=== PATIENT | female | born 1970 | race Native Hawaiian/Other Pacific Islander ===

== ENCOUNTER 2017-03-14 14:21 | Outpatient (CLI) | payer OTHER | END 2017-03-14 19:23 | disposition home or self-care (01) | LOC: MRI 14:21 | DX: M25.561 Pain in right knee (principal) ==

== ENCOUNTER 2017-12-14 20:04 | Outpatient (CLI) | payer OTHER | END 2017-12-14 20:16 | disposition short-term general hospital (02) | LOC: AMB 20:04 | DX: M54.2 Cervicalgia (principal); Y08.89XA Assault by other specified means, initial encounter; Y92.89 Other specified places as the place of occurrence of the external cause | CPT/HCPCS: A0425; A0426 ==

== ENCOUNTER 2017-12-14 20:28 | Emergency (ER) | payer OTHER ==
[~2017-12-14] VITALS: Ht 170.2 cm; Wt 82.6 kg
[2017-12-14 20:18] VITALS: BP 150/95; TEMP 97.9
== END 2017-12-14 21:45 | disposition home or self-care (01) ==
LOC: ED 20:28
DX: M54.2 Cervicalgia (principal); M54.5 Low back pain; Y09 Assault by unspecified means
CPT/HCPCS: 99283; J1885

== ENCOUNTER 2018-08-15 08:55 | Outpatient (CLI) | payer OTHER | END 2018-08-15 21:17 | disposition home or self-care (01) | LOC: US 08:55 | DX: R10.11 Right upper quadrant pain (principal) ==

== ENCOUNTER 2019-04-10 10:17 | Inpatient (IN) | payer OTHER ==
[~2019-04-10] VITALS: Ht 167.6 cm; Wt 72.6 kg
[2019-04-10 10:17] VITALS: BP 113/75; TEMP 98.7
[2019-04-10 11:37] LABS: PLATELET COUNT 399 K/uL (152-353)
[2019-04-10 11:45] LABS: POTASSIUM 3.5 mmol/L (3.6-5.2)
[2019-04-10 17:16] VITALS: BP 124/85; TEMP 97.8
[2019-04-10 19:30] VITALS: BP 124/85; TEMP 97.8; Ht 167.6 cm; Wt 72.6 kg
[2019-04-10 20:00] VITALS: BP 117/73; TEMP 97.6
[2019-04-11] VITALS: BP 131/88; TEMP 98.3
[2019-04-11 04:00] VITALS: BP 149/86; TEMP 98.4
[2019-04-11 08:22] VITALS: BP 150/96; TEMP 97.6
[2019-04-11 08:46] LABS: POTASSIUM 3.6 mmol/L (3.6-5.2)
[2019-04-11 09:54] LABS: PLATELET COUNT 331 K/uL (152-353)
--- NOTE | 2019-04-11 10:33 | NUR ---
IV WAS FLUSHED AND IV ANITBOTICS STARTED ON PT, BUT PT C/O OF IV SITE STINGING, AND A SMALL RAISED AREA WAS NOTED ABOUT AN INCH AWAY FROM SITE. IV STOPPED AND WILL ATTEMPT TO GAIN ANOTHER IV SITE TO PT. PT IS ON CONTACT ISOLATION D/T STAPH IN BILATERAL HANDS. PT WENT OUT EARLIER TO THE SMOKING AREA. THIS NURSE ASK NURSE PROCESS SAFETY MANAGEMENT ENGINEER FARIBA LOVELL ABOUT IF PT WAS ALLOWED TO GO OUT, IF SHE WAS ON CONTACT, AND WAS TOLD THAT PT NEEDED TO STAY IN HER ROOM. THIS NURSE THEN INFORMED PT OF THIS INFORMATION, AND PT STATED,"THAT SHE WAS GOING TO THE SMOKING AREA, BUT SHE WOULDN'T THUMP ANYTHING ON ANYBODY". PT REFUSING TO NOT COME OUT OF HER ROOM, D/T CONTACT PRECAUTIONS. NURSE PROCESS SAFETY MANAGEMENT ENGINEER, FARIBA LOVELL IS IN MEETING UNTIL 1500 TODAY BUT THIS NURSE WILL ATTEMPT TO CONTACT HER, ON HOW TO ADDRESS THIS ISSUE. NAD NOTED. WILL CONT TO MONITOR.
--- NOTE | 2019-04-11 11:10 | NUR ---
ASSISTANT EXECUTIVE HOUSEKEEPER, FARIBA LOVELL WAS CONTACTED REGARDING PT NOT STAYING IN HER ROOM D/T BEING ON CONTACT PRECAUTIONS. NURSE TRACK MANAGER INSTRUCTED THIS NURSE TO CONTACT PT'S ATTENDINNG PHYSICIAN, DR JACKSON AND INFORMED HER, AND HER ADVISE ON HOW TO HANDLE SITUATION.
--- NOTE | 2019-04-11 12:18 | NUR ---
PT CONTINUES TO WALK OUTSIDE TO SMOKE,EVEN THOUGH SHE HAS BEEN ADVISED AGAINST IT D/T PT BEING ON CONTACT PRECAUTIONS, REGARDING WOUNDS ON TOP OF BILATERAL HANDS. DR JACKSON WAS CONTACTED AND INFORMED OF THIS INFORMATION. NEW ORDER FOR NICOTINE PATCH, 21 MG, TRANSDERMAL, Q DAY WAS RECEIVED. SHE ALSO INSTRUCTED THIS NURSE TO INFORM PT THAT SHE COULD NOT BE WALKING OUTSIDE OF ROOM D/T BEING ON CONTACT PRECAUTIONS, AND THAT SHE DID NOT NEED TO BE SMOKING D/T IT COMPROMISING HER IMMUNE SYSTEM. WOUND CULTURE SPECIMEN IS ALSO BEING OBTAINED ON PT'S LEFT HAND.
--- NOTE | 2019-04-11 15:44 | NUR ---
PT HAS WALKED OUT OF ROOM AND WENT OUTSIDE. PT WAS REMINDED THAT SHE WAS ON CONTACT PRECAUTIONS AND WAS NOT SUPPOSE TO LEAVE ROOM, AND WAS ASKED IF SHE WOULD LIKE A NICOTIN PATCH. PT STATED, "THAT IF SHE COULD NOT WALK OUTSIDE THAT SHE WANTED TO LEAVE, AND THAT SHE DID NOT WANT THE NICOTIN PATCH". PT CONTINUE TO WALK OUTSIDE. DR JACKSON WAS CALLED AND INFORMED ABOUT PT CONTINING TO WALK OUTSIDE. DR JACKSON STATED, "THAT SHE WOULD FINISH UP AT HER OFFICE, AND THEN COME AND TALK TO PATIENT.
[2019-04-11] MEDS ORDERED: ZEBUTAL 50-325-1 CAP PO (15:59)
[2019-04-11] MEDS ORDERED: ALPR0.5T24 PO (16:00)
[2019-04-11] MEDS ORDERED: HYDR10TA47A PO (16:01)
[2019-04-11] MEDS ORDERED: MOBIC7.5 M1 PO (16:23)
[2019-04-11] MEDS ORDERED: AMIT25TA22 PO (16:24)
[2019-04-11] MEDS ORDERED: GABA400C2 PO (16:25)
[2019-04-11] MEDS ORDERED: LISI20TA11 PO (16:26)
[2019-04-11] MEDS ORDERED: ATEN50TA36 PO (16:27)
[2019-04-11] MEDS ORDERED: DULOXETINE HCL60 MG PO (16:28)
[2019-04-11] MEDS ORDERED: TIZANIDINE HYDRO4 MG PO (16:29)
[2019-04-11] MEDS ORDERED: ROBAXIN-750750 MG PO (16:30)
[2019-04-11] MEDS ORDERED: [UNRECOGNIZED DRUG - CODE] PO (16:33)
--- NOTE | 2019-04-11 18:17 | NUR ---
DR JACKSON CAME TO HOSPITAL TO MAKE ROUNDS AND SEE PT D/T PATIENT CONTINUING TO LEAVE ROOM AND GO OUTSIDE TO SMOKE. PT AGREED TO STAY IN ROOM. DR JACKSON CONTINUED PT'S HOME MEDS.
--- NOTE | 2019-04-11 19:42 | NUR ---
PT IS SLANDERIZING THIS NURSE TO OTHER STAFF MEMBERS. THIS NURSE WENT TO TURN OFF PATIENT'S IV PUMP, AND ASK PATIENT IF THERE WAS A PROBLEM. PT SITTING UP IN BED AND TOLD THIS NURSE, "TO GET OUT OF HER ROOM, AND THAT SHE DID NOT HAVE ANYTHING TO SAY TO THIS NURSE". PUMP WAS TURNED OFF AND PT WAS UNHOOKED. THIS NURSE THEN LEFT THE ROOM, PT HAD REQUESTED. NURSE KILN BURNER HELPER FARIBA LOVELL WAS CALLED TO INFORM HER OF THIS INFORMATION, BUT DID NOT ANSWER.
[2019-04-11 20:00] VITALS: BP 153/92; TEMP 98
[2019-04-11 23:50] VITALS: BP 140/85; TEMP 98
[2019-04-12 04:00] VITALS: BP 150/95; TEMP 97.8
--- NOTE | 2019-04-12 08:00 | NUR ---
PT SITTING UP N BED. DENIES ACUTE DISTRESS.
[2019-04-12 10:38] VITALS: BP 172/98; TEMP 97.8
--- NOTE | 2019-04-12 10:47 | NUR ---
CALL TO DR JACKSON, REPORTED THAT PT HAD GONE OUT AFTER BEING ASKED NOT TO B/C OF HER WOUNDS & DX. 'SHE JUST PUSHED HER IV POLE & WENT OUT TO SMOKE' PER UNIT SECRETATY. AISLINN KINNEY RN CALLED & REPORTED THAT PT WAS OUTSIDE SMOKING TELLING EVERYONE THAT SHE 'WAS GETTING TERRIBLE CARE HERE'. DR JACKSON STATES' SHES GOING TO HAVE TO WAIT UNTIL I COME TO SEE HER & REVIEW HER LABS'.
--- NOTE | 2019-04-12 13:00 | NUR ---
PT ANXIOUS & TEARFUL' I JUST WANT TO GO HOME & MY BACK HURTS'. PT MEDICATED WITH HYDORCONE & XANAX PER DR'S ORDERS.
--- NOTE | 2019-04-12 14:03 | NUR ---
DR JACKSON IN TO SEE PT. WILL SEND PT HOME. WOUND CARE TO [place] TOP OF HANDS,2CM IN SIZE, BLOODY SMAMT & TRYING TO SCAB OVER. L HAND SITE SL RED. CLEANED WITH NS COVERED WI TELFA & CR WRAP.
[2019-04-12 14:33] VITALS: BP 126/93; TEMP 98
--- NOTE | 2019-04-12 15:20 | NUR ---
D/C INSTRUCTIONS GIVEN. PT VERBALIZED UNDERSTANDING. IV SITES L UPPER ARM 22G & R FA 20 G D/C'D CANNULA INTACT, SITES SECURED.
--- NOTE | 2019-04-12 15:33 | NUR ---
PT D/C STABLE AMBULATORY TO FRONT OF HOSPITAL TO [facility] OUTFRONT AT PT'S REQUEST. PT STATES'I JUST WANT TO GET OUT OF HERE MY SON WILL BE HERE AT 4PM'.
[2019-04-12 15:37] LABS: PLATELET COUNT 343 K/uL (152-353)
== END 2019-04-12 15:33 | disposition home or self-care (01) | DRG 603 ==
LOC: ED 10:17 → MED/SURG 14:18
PROVIDERS: Family Medicine; ADMIT Family Medicine
DX: L03.114 Cellulitis of left upper limb (principal); L03.113 Cellulitis of right upper limb; I10 Essential (primary) hypertension; J44.9 Chronic obstructive pulmonary disease, unspecified
CPT/HCPCS: 80053; 80202; 81000; 85027; 87040; 87070; 87205; 99283; J1650; J3370; J3490

== ENCOUNTER 2019-05-10 15:20 | Observation (INO) | payer OTHER ==
[~2019-05-10] VITALS: Ht 167.6 cm; Wt 78.7 kg
[~2019-05-10 15:20] MED LIST: ALPR0.5T24 PO; AMIT25TA22 PO; ATEN50TA36 PO; DULOXETINE HCL60 MG PO; GABA400C2 PO; HYDR10TA47A PO; LISI20TA11 PO; MOBIC7.5 M1 PO; ROBAXIN-750750 MG PO; TIZANIDINE HYDRO4 MG PO; ZEBUTAL 50-325-1 CAP PO; [UNRECOGNIZED DRUG - CODE] PO
[2019-05-10 15:47] VITALS: BP 149/81; TEMP 101.3
[2019-05-10 16:43] LABS: PLATELET COUNT 323 K/uL (152-353)
[2019-05-10 16:48] VITALS: BP 156/86
[2019-05-10 16:51] LABS: POTASSIUM 2.9 mmol/L (3.6-5.2)
[2019-05-10 17:32] VITALS: BP 149/79
[2019-05-10 19:30] VITALS: BP 142/74
[2019-05-10 20:15] VITALS: BP 136/76
[2019-05-11] VITALS: BP 134/80; TEMP 98.8
[2019-05-11 04:00] VITALS: BP 140/73; TEMP 97.3
[2019-05-11 05:06] LABS: PLATELET COUNT 286 K/uL (152-353)
[2019-05-11 05:36] LABS: POTASSIUM 2.8 mmol/L (3.6-5.2)
--- NOTE | 2019-05-11 10:57 | NUR ---
IRRIGATOR WENT IN PT ROOM TO ADMINISTER MEDICATION THIS A.M. PT REFUSED MEDICATION. PT VERY UPSET AND YELLING STATING "IM HURTING, DON'T YOU SEE WHATS GOING ON WITH ME? I'M NOT GOING TO TAKE NO TYLENOL OR TORDAL". IRRIGATOR TRIED TO EXPLAIN TO PT THOSE WAS THE ONLY MEDICATION THAT WAS FOR PAIN AT THIS TIME. CHARGE NURSE CALLED HOSPITLIST TO GET SOMTHING ELSE FOR PAIN. HOSPILIST SAID SHE WILL GO AND TALK [facility]IH PT, BUT TRY AND ADMINISTER POTASSIUM. PT REFUSED POTASSIUM.
[2019-05-11] MEDS ORDERED: 904272561 PO (15:51)
== END 2019-05-11 17:00 | disposition home or self-care (01) ==
LOC: ED 15:20 → MED/SURG 19:04
PROVIDERS: Internal Medicine; ADMIT Hospitalist
DX: L98.8 Other specified disorders of the skin and subcutaneous tissue (principal); B95.62 Methicillin resistant Staphylococcus aureus infection as the cause of diseases classified elsewhere; J44.9 Chronic obstructive pulmonary disease, unspecified; I10 Essential (primary) hypertension; K21.9 Gastro-esophageal reflux disease without esophagitis; M15.8 Other polyosteoarthritis; G62.89 Other specified polyneuropathies
CPT/HCPCS: 36415; 80048; 80053; 83605; 85027; 87040; 94640; 94664; 94760; 96365; 96367; 96375; 99220; 99284; G0378; J1650; J1885; J1956; J2270; J2405; J3370

== ENCOUNTER 2019-05-14 10:41 | Emergency (ER) | payer OTHER ==
[~2019-05-14] VITALS: Ht 167.6 cm; Wt 77.1 kg
[2019-05-14 10:41] VITALS: BP 115/72; TEMP 98
[~2019-05-14 10:41] MED LIST changes: +904272561 PO
[2019-05-14 11:07] LABS: PLATELET COUNT 365 K/uL (152-353)
[2019-05-14 11:10] LABS: POTASSIUM 3.2 mmol/L (3.6-5.2)
== END 2019-05-14 12:59 | disposition other institution (70) ==
LOC: ED 10:41
PROVIDERS: Hospitalist
DX: L03.114 Cellulitis of left upper limb (principal); L03.113 Cellulitis of right upper limb; F31.9 Bipolar disorder, unspecified; Z79.899 Other long term (current) drug therapy; Z04.6 Encounter for general psychiatric examination, requested by authority
CPT/HCPCS: 80053; 80307; 80320; 80329; 81000; 81025; 85027; 93005; 99285

== ENCOUNTER 2019-06-07 22:27 | Emergency (ER) | payer OTHER ==
[~2019-06-07] VITALS: Ht 160 cm; Wt 86.2 kg
[2019-06-07 22:28] VITALS: TEMP 97.7
[2019-06-07 23:20] LABS: PLATELET COUNT 355 K/uL (152-353)
[2019-06-07 23:26] LABS: POTASSIUM 3.5 mmol/L (3.6-5.2)
[2019-06-08] MEDS ORDERED: BUPR1SUBFM SL (00:33)
[2019-06-08 02:30] VITALS: BP 106/69
== END 2019-06-08 02:30 | disposition short-term general hospital (02) ==
LOC: ED 22:27
PROVIDERS: Emergency Medicine
PROC: 0T9B70Z Drainage of Bladder with Drainage Device, Via Natural or Artificial Opening (ICD-10-PCS; principal; 2019-06-07)
PROC: 0DH57BZ Insertion of Airway into Esophagus, Via Natural or Artificial Opening (ICD-10-PCS; 2019-06-07)
PROC: 0BH17EZ Insertion of Endotracheal Airway into Trachea, Via Natural or Artificial Opening (ICD-10-PCS; 2019-06-07)
PROC: 5A1935Z Respiratory Ventilation, Less than 24 Consecutive Hours (ICD-10-PCS; 2019-06-07)
DX: R41.82 Altered mental status, unspecified (principal); F19.10 Other psychoactive substance abuse, uncomplicated
CPT/HCPCS: 36600; 43754; 51702; 80053; 80307; 80320; 80329; 81000; 81025; 82550; 82805; 83605; 83735; 84484; 85027; 92950; 93005; 96360; 96361; 96365; 96375; 99285; J0330; J2250; J3360

== ENCOUNTER 2019-09-14 12:24 | Emergency (ER) | payer OTHER ==
[~2019-09-14] VITALS: Ht 167.6 cm; Wt 54.4 kg
[~2019-09-14 12:24] MED LIST changes: +BUPR1SUBFM SL
[2019-09-14 12:32] VITALS: BP 85/57; TEMP 99.1
== END 2019-09-14 14:07 | disposition home or self-care (01) ==
LOC: ED 12:24
DX: L30.3 Infective dermatitis (principal); B95.62 Methicillin resistant Staphylococcus aureus infection as the cause of diseases classified elsewhere
CPT/HCPCS: 99282

== ENCOUNTER 2019-09-15 14:56 | Inpatient (IN) | payer OTHER ==
[~2019-09-15] VITALS: Ht 165.1 cm; Wt 65.4 kg
[2019-09-15] VITALS (7 sets, daily range): BP systolic 84–114; BP diastolic 41–68; TEMP 97.6–98.2; Ht 165.1 cm; Wt 65.4 kg
[2019-09-15 15:28] LABS: PLATELET COUNT 540 K/uL (152-353)
[2019-09-15 15:31] LABS: POTASSIUM 2.6 mmol/L (3.6-5.2)
[2019-09-16] VITALS: BP 91/57; TEMP 98.3
[2019-09-16] MEDS ORDERED: HYDROXYZINE HYD25 MG PO (00:36)
[2019-09-16] MEDS ORDERED: CLINDAMYCIN HY300 MG PO (00:37)
[2019-09-16 04:00] VITALS: BP 104/64; TEMP 98.6
[2019-09-16 08:00] VITALS: BP 118/72; TEMP 97.6
[2019-09-16 16:00] VITALS: BP 116/73; TEMP 98.4
[2019-09-16 20:00] VITALS: BP 129/86; TEMP 99.1
[2019-09-17] VITALS (8 sets, daily range): BP systolic 105–144; BP diastolic 65–89; TEMP 97.5–98.7
[2019-09-17 04:46] LABS: PLATELET COUNT 487 K/uL (152-353)
[2019-09-18 04:00] VITALS: BP 143/93; TEMP 98.3
[2019-09-18 05:50] LABS: PLATELET COUNT 527 K/uL (152-353)
[2019-09-18 06:38] LABS: POTASSIUM 2.8 mmol/L (3.6-5.2)
[2019-09-18 08:00] VITALS: BP 139/88; TEMP 97.8
[2019-09-18 12:00] VITALS: BP 138/88; TEMP 98.7
[2019-09-18 16:00] VITALS: BP 146/93; TEMP 97.8
[2019-09-18 20:00] VITALS: BP 133/82; TEMP 99.1
[2019-09-18 23:54] VITALS: BP 129/82; TEMP 98.1
[2019-09-19 04:00] VITALS: BP 126/79; TEMP 98.2
[2019-09-19 05:52] LABS: PLATELET COUNT 540 K/uL (152-353)
[2019-09-19 06:11] LABS: POTASSIUM 2.7 mmol/L (3.6-5.2)
[2019-09-19 08:00] VITALS: BP 138/91; TEMP 98.5
[2019-09-19 12:00] VITALS: BP 132/85; TEMP 98.5
[2019-09-19 16:00] VITALS: BP 135/96; TEMP 98.1
[2019-09-19 19:56] VITALS: BP 135/94; TEMP 98.1
[2019-09-19 23:47] VITALS: BP 122/79; TEMP 98.4
[2019-09-20 04:27] VITALS: BP 144/82; TEMP 98.8
[2019-09-20 08:00] VITALS: BP 142/105; TEMP 98
[2019-09-20 08:09] LABS: PLATELET COUNT 544 K/uL (152-353)
[2019-09-20 08:14] LABS: POTASSIUM 3.6 mmol/L (3.6-5.2)
[2019-09-20 12:00] VITALS: BP 134/92; TEMP 98.5
== END 2019-09-20 15:05 | disposition home or self-care (01) | DRG 603 ==
LOC: ED 14:56 → MED/SURG 18:55
PROVIDERS: Internal Medicine; Internal Medicine Endocrinology, Diabetes & Metabolism; ADMIT Emergency Medicine
DX: L03.114 Cellulitis of left upper limb (principal); L03.221 Cellulitis of neck; L03.211 Cellulitis of face; E87.6 Hypokalemia; L03.113 Cellulitis of right upper limb; I10 Essential (primary) hypertension; F41.8 Other specified anxiety disorders; G89.4 Chronic pain syndrome; B95.62 Methicillin resistant Staphylococcus aureus infection as the cause of diseases classified elsewhere; Z72.0 Tobacco use
CPT/HCPCS: 36415; 80048; 80053; 80202; 80307; 80320; 80329; 81000; 83605; 83735; 85027; 87040; 87070; 87205; 93005; 96360; 96365; 96375; 99284; J0696; J1650; J1885; J2405; J2543; J3370

== ENCOUNTER 2020-02-13 09:36 | Outpatient (CLI) | payer OTHER ==
[~2020-02-13 09:36] MED LIST changes: +CLINDAMYCIN HY300 MG PO; +HYDROXYZINE HYD25 MG PO
== END 2020-02-13 19:46 | disposition home or self-care (01) ==
LOC: MRI 09:36
PROVIDERS: ATTEND Physical Medicine & Rehabilitation Pain Medicine
DX: M47.812 Spondylosis without myelopathy or radiculopathy, cervical region (principal); M54.16 Radiculopathy, lumbar region

== ENCOUNTER 2020-03-09 13:58 | Emergency (ER) | payer OTHER ==
[~2020-03-09] VITALS: Ht 165.1 cm; Wt 65.3 kg
[2020-03-09 13:58] VITALS: BP 132/72; TEMP 97.8
[2020-03-09 14:50] LABS: PLATELET COUNT 380 K/uL (152-353)
[2020-03-09 15:03] LABS: POTASSIUM 3.5 mmol/L (3.6-5.2); SODIUM 138 mmol/L (136-145)
[2020-03-09 15:09] LABS: PARTIAL THROMBOPLASTIN TIME 25.2 SECONDS (24.5-33.6)
== END 2020-03-09 16:31 | disposition home or self-care (01) ==
LOC: ED 13:58
PROVIDERS: Hospitalist
DX: F41.8 Other specified anxiety disorders (principal); J40 Bronchitis, not specified as acute or chronic; E87.6 Hypokalemia; R06.02 Shortness of breath; F17.210 Nicotine dependence, cigarettes, uncomplicated
CPT/HCPCS: 80053; 80320; 82550; 82553; 83880; 84484; 85027; 85610; 85730; 93005; 96365; 96375; 99284; J0696; J1200

== ENCOUNTER 2020-04-09 08:23 | Outpatient (CLI) | payer OTHER ==
[2020-04-09 09:05] LABS: PLATELET COUNT 368 K/uL (152-353)
[2020-04-09 09:28] LABS: POTASSIUM 4.6 mmol/L (3.6-5.2)
== END 2020-04-09 21:37 | disposition home or self-care (01) ==
LOC: US 08:23
PROVIDERS: ATTEND Internal Medicine Gastroenterology
DX: B18.2 Chronic viral hepatitis C (principal)
CPT/HCPCS: 36415; 80053; 82172; 82247; 82977; 83010; 83883; 84460; 85027; 85610; 87522; 87902

== ENCOUNTER 2020-07-02 12:44 | Outpatient (CLI) | payer OTHER ==
[2020-07-02 13:09] LABS: PLATELET COUNT 312 K/uL (152-353)
== END 2020-07-02 22:43 | disposition home or self-care (01) ==
LOC: LABW 12:44
PROVIDERS: ATTEND Internal Medicine Gastroenterology
DX: B18.2 Chronic viral hepatitis C (principal)
CPT/HCPCS: 36415; 80076; 85027; 87522

== ENCOUNTER 2021-09-09 12:29 | Outpatient (CLI) | payer OTHER | END 2021-09-09 18:52 | disposition home or self-care (01) | LOC: RAD 12:29 | PROVIDERS: ATTEND Physician Assistant | DX: M54.2 Cervicalgia (principal) ==

== ENCOUNTER 2021-09-10 08:33 | Outpatient (CLI) | payer OTHER | END 2021-09-10 19:56 | disposition home or self-care (01) | LOC: RAD 08:33 | PROVIDERS: ATTEND Physician Assistant | DX: M54.59 Other low back pain (principal) ==

== ENCOUNTER 2021-09-17 11:10 | Outpatient (CLI) | payer OTHER | END 2021-09-17 19:16 | disposition home or self-care (01) | LOC: MRI 11:10 | PROVIDERS: ATTEND Physician Assistant | DX: M54.59 Other low back pain (principal) ==

== ENCOUNTER 2022-07-26 22:09 | Emergency (ER) | payer OTHER ==
[~2022-07-26] VITALS: Ht 165.1 cm; Wt 77.1 kg
== END 2022-07-26 22:40 | disposition home or self-care (01) ==
LOC: ED 22:09
DX: S00.03XA Contusion of scalp, initial encounter (principal); F19.10 Other psychoactive substance abuse, uncomplicated; X58.XXXA Exposure to other specified factors, initial encounter
CPT/HCPCS: 99281

== ENCOUNTER 2022-07-28 15:57 | Emergency (ER) | payer OTHER ==
[~2022-07-28] VITALS: Ht 165.1 cm; Wt 61.2 kg
[2022-07-28 15:57] VITALS: TEMP 98.2
[2022-07-28 16:32] LABS: POTASSIUM 2.5 mmol/L (3.6-5.2)
[2022-07-28 16:44] LABS: PLATELET COUNT 493 K/uL (152-353)
[2022-07-28 21:47] LABS: PLATELET COUNT 399 K/uL (152-353)
[2022-07-28 22:10] LABS: POTASSIUM 2.5 mmol/L (3.6-5.2)
[2022-07-29 04:37] LABS: POTASSIUM 2.8 mmol/L (3.6-5.2)
[2022-07-29 04:39] LABS: PLATELET COUNT 364 K/uL (152-353)
[2022-07-29 07:30] VITALS: BP 132/89
== END 2022-07-29 07:30 | disposition other institution (70) ==
LOC: ED 15:57
PROVIDERS: Emergency Medicine Emergency Medical Services
DX: R41.82 Altered mental status, unspecified (principal); F19.10 Other psychoactive substance abuse, uncomplicated; Z02.79 Encounter for issue of other medical certificate
CPT/HCPCS: 36415; 80053; 80143; 80179; 80307; 80320; 81000; 83735; 84132; 84484; 85007; 85027; 87635; 93005; 96361; 96365; 96366; 96375; 99285; J2405; U0003